=== PATIENT | male | born 1990 ===

== ENCOUNTER 2025-01-05 12:57 | Emergency (ER) | payer SELFPAY ==
--- NOTE | 2025-01-05 13:05 | ED.GENADULT ---
HPI - General Adult General Chief complaint: Upper Respiratory Infection Stated complaint: throat irritation Source: patient Mode of arrival: ambulatory Limitations: no limitations History of Present Illness HPI narrative: Patient is a pleasant 34-year-old male presenting with complaint of sore throat. Sore throat began yesterday. No known exposure to COVID, flu, strep, pneumonia. Treatment initiated prior to arrival Include ibuprofen. No additional complaints. Related Data Home Medications ?Medication ?Instructions ?Recorded ?Confirmed ?Last Taken ?Type fluticasone 232 mcg-salmeterol 14 inh inhalation 01/05/25 Unknown History mcg/actuation breath activated powdr Allergies Allergy/AdvReac Type Severity Reaction Status Date / Time Sulfa (Sulfonamide Allergy Mild Rash Verified 01/05/25 13:15 Antibiotics) NSAIDS (Non-Steroidal AdvReac Intermediate Gastrointestinal Verified 01/05/25 13:15 Anti-Inflamma Upset Review of Systems Review of Systems: CONSTITUTIONAL: Denies body aches, fever, chills, or sweats. EYES: Denies visual changes, redness, or discharge. ENT: reports sore throat Denies rhinorrhea, congestion, sore throat, or otalgia. CARDIOVASCULAR: Denies chest pain, palpitations, or edema. RESPIRATORY: Denies cough or dyspnea. GASTROINTESTINAL: Denies abdominal pain, nausea, vomiting, or diarrhea. GENITOURINARY: Denies dysuria or hematuria. SKIN: Denies rash, itching, or wounds. MUSCULOSKELETAL: Denies back pain, joint pain, or myalgia. NEUROLOGIC: Denies headache, numbness, tingling, or weakness. PSYCH: Denies depression or anxiety All systems reviewed & are unremarkable except as noted in HPI and below Exam Narrative: GENERAL: Well-appearing, well-nourished, and in no acute distress. HEAD: Normocephalic, atraumatic. EYES: EOMI. No redness or drainage. Conjunctivae normal. ENT: Mucous membranes pink and moist. Nares clear. No rhinorrhea. TMs normal bilaterally. Mild erythema to posterior pharynx. Uvula midline. Mild edema to uvula. NECK: Normal AROM. Supple. No lymphadenopathy. CHEST: No respiratory distress. Clear to auscultation. HEART: Regular rate and rhythm. No murmur appreciated. Normal peripheral pulses. MUSCULOSKELETAL: No bony tenderness. EXTREMITIES: Normal range of motion. No edema. SKIN: Warm, dry, no rash. Capillary refill normal. Normal skin turgor. NEURO: No focal deficits. Alert and oriented x3. Gait steady. PSYCH: Normal affect. No signs of depression or anxiety. Course Course Level of Care: Express Care Visit Vital Signs Vital signs: Vital Signs Temperature 97.6 F 01/05/25 13:13 Pulse Rate 59 L 01/05/25 13:13 Respiratory Rate 16 01/05/25 13:13 Blood Pressure 119/78 01/05/25 13:13 Pulse Oximetry 99 01/05/25 13:13 Temperature 97.6 F 01/05/25 13:13 Pulse Rate 59 L 01/05/25 13:13 Respiratory Rate 16 01/05/25 13:13 Blood Pressure 119/78 01/05/25 13:13 Pulse Oximetry 99 01/05/25 13:13 Medical Decision Making Vital Signs Vital Signs: Vital Signs Temperature 97.6 F 01/05/25 13:13 Pulse Rate 59 L 01/05/25 13:13 Respiratory Rate 16 01/05/25 13:13 Blood Pressure 119/78 01/05/25 13:13 Pulse Oximetry 99 01/05/25 13:13 Temperature 97.6 F 01/05/25 13:13 Pulse Rate 59 L 01/05/25 13:13 Respiratory Rate 16 01/05/25 13:13 Blood Pressure 119/78 01/05/25 13:13 Pulse Oximetry 99 01/05/25 13:13 Discharge Plan Discharge Clinical Impression: Pharyngitis Qualifiers: Pharyngitis/tonsillitis etiology: unspecified etiology Qualified Code(s): J02.9 - Acute pharyngitis, unspecified Patient Disposition: Home Condition: Stable Instructions: Antibiotic Form, Pharyngitis (ED) Additional Instructions: Go straight to ER should your symptoms become worse or should any new symptoms develop Patient Language: Hungarian Prescriptions: No Action fluticasone propion-salmeterol 232-14 mcg/actuation aerosol powdr breath activated INHALATION Follow-up/Referrals: Juve,BEATRICE Corcoran [Primary Care Provider] - 01/05/25 Time of Disposition: 13:41
[2025-01-05 13:13] VITALS: BP 119/78; PULSE 59; RESP 16; TEMP 36.4; O2SAT 99
[2025-01-05 13:50] LABS: EDSTREPNEGPOS1 Negative (Negative)
== END 2025-01-05 13:50 | disposition home or self-care (01) ==
PROVIDERS: Emergency Provider Registered Nurse; PCP Registered Nurse
DX: J02.9 Acute pharyngitis, unspecified (principal)
CPT/HCPCS: 87081; 87880; 99203; G0463